=== PATIENT | male | born 1960 | race Caucasian/White ===

== ENCOUNTER 2017-04-22 05:22 | Emergency (ER) | payer BC ==
[2017-04-22] MEDS ORDERED: MORPHINE SULFATE 10 MG/ML SYRINGE IV STA (05:34)
[2017-04-22] MEDS ORDERED: KETOROLAC 30 MG/ML 1 ML VIAL IVP STA ×2 (05:34→07:08)
[2017-04-22] MEDS ORDERED: ONDANSETRON 4 MG/2 ML VIAL IVP STA (05:34)
[2017-04-22] MEDS ORDERED: SODIUM CHLORIDE 0.9% 1,000 ML IV STA (05:34)
--- NOTE | 2017-04-22 05:37 | ED ---
General Adult HPI - General Source: patient, RN notes reviewed Mode of arrival: ambulatory Limitations: no limitations <Jarrell Temple - Last Filed: 04/22/17 07:22> <Sean Wright - Last Filed: 04/22/17 10:19> - General Chief complaint: Abdominal Pain Stated complaint: abd pain Time Seen by Provider: 04/22/17 05:25 - History of Present Illness Initial comments: 56-year-old male presents with chief complaint of groin pain and flank pain. Pain is constant dull pain. Patient does have history of kidney stones. Last stone was approximately 5 years ago. Symptoms began abruptly at approximately 2 AM. Patient took Motrin at home with minimal relief. Patient states that he has had some intermittent nausea over the past 24 hours. No significant vomiting. No diarrhea. Patient denies dysuria. Denies fever or chills. Past medical history of hypertension, and hypercholesterolemia. (Jarrell Temple) - Related Data Home Medications Medication Instructions Recorded Confirmed Fluvastatin Sodium 40 mg PO HS 04/22/17 04/22/17 Ibuprofen 600 mg PO Q6HR PRN 04/22/17 04/22/17 Losartan [Cozaar] 50 mg PO HS 04/22/17 04/22/17 Multivitamins, Thera [Multivitamin 1 tab PO HS 04/22/17 04/22/17 (formulary)] Previous Rx's Medication Instructions Recorded Hydrocodone/Acetaminophen [Hamer 2 each PO Q6HR PRN #20 tab 04/22/17 5-325] Tamsulosin [Flomax] 0.4 mg PO DAILY #14 cap 04/22/17 Allergies Allergy/AdvReac Type Severity Reaction Status Date / Time No Known Allergies Allergy Verified 04/22/17 08:32 Review of Systems ROS Other: All systems not noted in ROS Statement are negative. <Jarrell Temple - Last Filed: 04/22/17 07:22> ROS Other: All systems not noted in ROS Statement are negative. <Sean Wright - Last Filed: 04/22/17 10:19> ROS Statement: Those systems with pertinent positive or pertinent negative responses have been documented in the HPI. Past Medical History Past Medical History: Hyperlipidemia, Hypertension Additional Past Medical History / Comment(s): Kindey stones History of Any Multi-Drug Resistant Organisms: None Reported Additional Past Surgical History / Comment(s): Cyst removed off of testicle. Past Psychological History: No Psychological Hx Reported Smoking Status: Never smoker Past Alcohol Use History: None Reported Past Drug Use History: None Reported <Jarrell Temple - Last Filed: 04/22/17 07:22> General Exam Limitations: no limitations General appearance: alert, in distress Head exam: Present: atraumatic, normocephalic Eye exam: Present: normal appearance, PERRL ENT exam: Present: normal exam Neck exam: Present: normal inspection. Absent: tenderness, meningismus Respiratory exam: Present: normal lung sounds bilaterally. Absent: respiratory distress Cardiovascular Exam: Present: regular rate, normal rhythm GI/Abdominal exam: Present: soft. Absent: distended, tenderness, guarding, rebound exam: Present: normal inspection. Absent: testicular tenderness, scrotal swelling Extremities exam: Present: normal inspection, normal capillary refill. Absent: pedal edema Back exam: Present: normal inspection, full ROM. Absent: tenderness, CVA tenderness (R), CVA tenderness (L) Neurological exam: Present: alert, oriented X3, CN II-XII intact. Absent: motor sensory deficit Psychiatric exam: Present: normal affect, normal mood Skin exam: Present: warm, dry, intact. Absent: cyanosis, diaphoretic <Jarrell Temple - Last Filed: 04/22/17 07:22> Course <Jarrell Temple - Last Filed: 04/22/17 07:22> <Sean Wright - Last Filed: 04/22/17 10:19> Vital Signs 04/22/17 04/22/17 04/22/17 05:25 06:53 09:41 Temperature 98.0 F 97.9 F Pulse Rate 51 L 64 61 Respiratory 18 19 16 Rate Blood Pressure 150/80 125/76 120/70 O2 Sat by Pulse 98 96 98 Oximetry - Reevaluation(s) Reevaluation #1: 04/22/17 07:23 On reevaluation, patient is in severe pain, he is given additional IV pain medication. (Jarrell Temple) Reevaluation #2: 04/22/17 07:23 Patient's care is signed out to Dr. Wright, pending urinalysis, and reevaluation of pain. (Jarrell Temple) Medical Decision Making - Lab Data Result diagrams: 04/22/17 05:47 04/22/17 05:47 <Jarrell Temple - Last Filed: 04/22/17 07:22> - Lab Data Result diagrams: 04/22/17 05:47 04/22/17 05:47 - Radiology Data Radiology results: report reviewed (Computed tomography scan of the abdomen pelvis shows a 5 mm calculi left proximal ureter.) <Sean Wright - Last Filed: 04/22/17 10:19> - Medical Decision Making Patient reevaluated by myself, Dr. Wright. Patient resting comfortably in bed. Patient and family updated on results and need for follow-up. (Sean Wright) - Lab Data Lab Results 04/22/17 04/22/17 04/22/17 Range/Units 05:47 05:47 05:47 WBC 13.6 H (3.8-10.6) k/uL RBC 5.25 (4.30-5.90) m/uL Hgb 15.3 (13.0-17.5) gm/dL Hct 47.2 (39.0-53.0) % MCV 89.9 (80.0-100.0) fL MCH 29.2 (25.0-35.0) pg MCHC 32.5 (31.0-37.0) g/dL RDW 14.4 (11.5-15.5) % Plt Count 262 (150-450) k/uL Neutrophils % 74 % Lymphocytes % 18 % Monocytes % 6 % Eosinophils % 1 % Basophils % 0 % Neutrophils # 10.1 H (1.3-7.7) k/uL Lymphocytes # 2.4 (1.0-4.8) k/uL Monocytes # 0.8 (0-1.0) k/uL Eosinophils # 0.1 (0-0.7) k/uL Basophils # 0.1 (0-0.2) k/uL Sodium 139 (137-145) mmol/L Potassium 4.0 (3.5-5.1) mmol/L Chloride 105 (98-107) mmol/L Carbon Dioxide 26 (22-30) mmol/L Anion Gap 8 mmol/L BUN 18 (9-20) mg/dL Creatinine 1.00 (0.66-1.25) mg/dL Est GFR (MDRD) Af Amer >60 (>60 ml/min/1.73 sqM) Est GFR (MDRD) Non-Af >60 (>60 ml/min/1.73 sqM) Glucose 158 H (74-99) mg/dL Plasma Lactic Acid Darshan 1.7 (0.7-2.0) mmol/L Calcium 9.3 (8.4-10.2) mg/dL Total Bilirubin 0.7 (0.2-1.3) mg/dL AST 22 (17-59) U/L ALT 35 (21-72) U/L Alkaline Phosphatase 68 (38-126) U/L Total Protein 6.6 (6.3-8.2) g/dL Albumin 4.1 (3.5-5.0) g/dL Amylase <30 L (30-110) U/L Lipase 63 (23-300) U/L Urine Color Urine Appearance (Clear) Urine pH (5.0-8.0) Ur Specific Lyle (1.001-1.035) Urine Protein (Negative) Urine Glucose (UA) (Negative) Urine Ketones (Negative) Urine Blood (Negative) Urine Nitrite (Negative) Urine Bilirubin (Negative) Urine Urobilinogen (<2.0) mg/dL Ur Leukocyte Esterase (Negative) Urine RBC (0-5) /hpf Urine WBC (0-5) /hpf Urine Mucus (None) /hpf 04/22/17 Range/Units 09:39 WBC (3.8-10.6) k/uL RBC (4.30-5.90) m/uL Hgb (13.0-17.5) gm/dL Hct (39.0-53.0) % MCV (80.0-100.0) fL MCH (25.0-35.0) pg MCHC (31.0-37.0) g/dL RDW (11.5-15.5) % Plt Count (150-450) k/uL Neutrophils % % Lymphocytes % % Monocytes % % Eosinophils % % Basophils % % Neutrophils # (1.3-7.7) k/uL Lymphocytes # (1.0-4.8) k/uL Monocytes # (0-1.0) k/uL Eosinophils # (0-0.7) k/uL Basophils # (0-0.2) k/uL Sodium (137-145) mmol/L Potassium (3.5-5.1) mmol/L Chloride (98-107) mmol/L Carbon Dioxide (22-30) mmol/L Anion Gap mmol/L BUN (9-20) mg/dL Creatinine (0.66-1.25) mg/dL Est GFR (MDRD) Af Amer (>60 ml/min/1.73 sqM) Est GFR (MDRD) Non-Af (>60 ml/min/1.73 sqM) Glucose (74-99) mg/dL Plasma Lactic Acid Darshan (0.7-2.0) mmol/L Calcium (8.4-10.2) mg/dL Total Bilirubin (0.2-1.3) mg/dL AST (17-59) U/L ALT (21-72) U/L Alkaline Phosphatase (38-126) U/L Total Protein (6.3-8.2) g/dL Albumin (3.5-5.0) g/dL Amylase (30-110) U/L Lipase (23-300) U/L Urine Color Yellow Urine Appearance Clear (Clear) Urine pH 5.5 (5.0-8.0) Ur Specific Lyle 1.023 (1.001-1.035) Urine Protein Trace H (Negative) Urine Glucose (UA) Trace H (Negative) Urine Ketones Negative (Negative) Urine Blood Large H (Negative) Urine Nitrite Negative (Negative) Urine Bilirubin Negative (Negative) Urine Urobilinogen <2.0 (<2.0) mg/dL Ur Leukocyte Esterase Negative (Negative) Urine RBC 71 H (0-5) /hpf Urine WBC 3 (0-5) /hpf Urine Mucus Rare H (None) /hpf Disposition <Jarrell Temple - Last Filed: 04/22/17 07:22> Time of Disposition: 10:19 <Sean Wright - Last Filed: 04/22/17 10:19> Clinical Impression: Ureterolithiasis Disposition: HOME SELF-CARE Condition: Stable Instructions: Kidney Stones (ED) Additional Instructions: Please follow-up with primary care physician in the next day or 2 for recheck. Please also follow-up with urology. Return for uncontrolled pain, fevers, worsening symptoms or other concerns. Prescriptions: Hydrocodone/Acetaminophen [Hamer 5-325] 2 each PO Q6HR PRN #20 tab PRN Reason: Pain Tamsulosin [Flomax] 0.4 mg PO DAILY #14 cap Referrals: Lobo Lazaro MD [Primary Care Provider] - 1-2 days Romeo Henderson MD [STAFF PHYSICIAN] - 1-2 days
[2017-04-22 06:08] LABS: Basophils # (A) 0.1 k/uL (0-0.2); Basophils % (A) 0 %; CH 29.4; CHCM 32.9; Eosinophils # (A) 0.1 k/uL (0-0.7); Eosinophils % (A) 1 %; HCT 47.2 % (39.0-53.0); HDW 2.37; HGB 15.3 gm/dL (13.0-17.5); Luc # (Auto) 0.16; Luc % (Auto) 1; Lymphocytes # (A) 2.4 k/uL (1.0-4.8); Lymphocytes % (A) 18 %; MCH 29.2 pg (25.0-35.0); MCHC 32.5 g/dL (31.0-37.0); MCV 89.9 fL (80.0-100.0); Mean Platelet Volume 7.6; Monocytes # (A) 0.8 k/uL (0-1.0); Monocytes % (A) 6 %; Neutrophils # (A) 10.1 k/uL (1.3-7.7); Neutrophils % (A) 74 %; RBC 5.25 m/uL (4.30-5.90); RDW 14.4 % (11.5-15.5); WBC 13.6 k/uL (3.8-10.6); WBC (Perox) 13.92
[2017-04-22 06:13] LABS: ALT 35 U/L (21-72); AST 22 U/L (17-59); Alkaline Phosphatase 68 U/L (38-126); Amylase <30 U/L (30-110); Anion Gap 8 mmol/L; Blood Urea Nitrogen 18 mg/dL (9-20); Calcium 9.3 mg/dL (8.4-10.2); Carbon Dioxide 26 mmol/L (22-30); Chloride 105 mmol/L (98-107); Glucose 158 mg/dL (74-99); Non-African American GFR(MDRD) >60 (>60 ml/min/1.73 sqM); Sodium 139 mmol/L (137-145); Total Bilirubin 0.7 mg/dL (0.2-1.3); Total Protein 6.6 g/dL (6.3-8.2)
[2017-04-22] MEDS ORDERED: MORPHINE SULFATE 10 MG/ML SYRINGE IVP STA (06:41)
--- NOTE | 2017-04-22 06:49 | CT ---
EXAM: CT Abdomen and Pelvis Without Intravenous Contrast. CLINICAL HISTORY: Reason: Left lower quadrant abdominal pain and nausea TECHNIQUE: Axial computed tomography images of the abdomen and pelvis without intravenous contrast. CTDI is 14.94 mGy and DLP is a 27 mGy-cm. This CT exam was performed using one or more of the following dose reduction techniques: automated exposure control, adjustment of the mA and/or kV according to patient size, and/or use of iterative reconstruction technique. COMPARISON: No relevant prior studies available. FINDINGS: Lower thorax: No acute findings. ABDOMEN: Liver: Diffuse hypoattenuation of the hepatic parenchyma is most consistent with fat infiltration. Gallbladder and bile ducts: Unremarkable. No calcified stones. No ductal dilation. Pancreas: Unremarkable. No ductal dilation. Spleen: Unremarkable. No splenomegaly. Adrenals: Unremarkable. No mass. Kidneys and ureters: There is an obstructing 5 mm calculus at the left ureteropelvic junction or proximal left ureter, with mild to moderate left-sided hydronephrosis and perinephric stranding. Findings consistent with left-sided obstructive uropathy. PELVIS: Bladder: Unremarkable. No stones. Reproductive: Unremarkable as visualized. Appendix: No findings to suggest acute appendicitis. ABDOMEN + PELVIS: Stomach and bowel: No bowel obstruction or wall thickening. Colonic diverticulosis, without evidence of acute diverticulitis. Peritoneum: Unremarkable. No significant fluid collection. No free air. Lymph nodes: Unremarkable. No enlarged lymph nodes. Vasculature: Unremarkable. No aortic aneurysm. Bones: No acute fracture. IMPRESSION: Left-sided obstructive uropathy due to a 5 mm calculus at the left UPJ or proximal left ureter. Hepatic steatosis. Diverticulosis without evidence of acute diverticulitis.
[2017-04-22] MEDS ORDERED: SODIUM CHLORIDE 0.9% 1,000 ML IV ONE (06:59)
[2017-04-22] MEDS ORDERED: HYDROmorphone 1 MG/ML 1 ML SYRINGE IVP STA (07:08)
[2017-04-22 09:42] VITALS: RESP 16
[2017-04-22 10:00] LABS: Appearance,Urine Clear (Clear); Bilirubin,Urine Negative (Negative); Glucose,Urine (UA) Trace (Negative); Ketones,Urine Negative (Negative); Leukocyte Esterase,Urine Negative (Negative); Mucus,Urine Rare /hpf; Nitrite,Urine Negative (Negative); PH, Urine 5.5 (5.0-8.0); Particle Count 2209; Protein,Urine Trace (Negative); RBC,Urine 71 /hpf (0-5); Specific Gravity,Urine 1.023 (1.001-1.035); UA Billing (MACRO vs. MICRO) MICRO; Urobilinogen,Urine <2.0 mg/dL (<2.0); WBC,Urine 3 /hpf (0-5)
[2017-04-22 10:33] VITALS: BP 119/67; PULSE 65; TEMP 97.8
== END 2017-04-22 10:32 | disposition home or self-care (01) ==
LOC: EC 05:22
DX: N20.1 Calculus of ureter (principal); I10 Essential (primary) hypertension; E78.5 Hyperlipidemia, unspecified; Z79.899 Other long term (current) drug therapy
CPT/HCPCS: 51798; 36415; 80053; 82150; 83605; 83690; 85025; 81001; 87086; 74176; 99284; 96374; 96375 ×3; 96376 ×2; 96361 ×3; J2270; J2405; J1885; J1170

== ENCOUNTER → 2017-06-26 | Outpatient (CLI) | payer BC ==
--- NOTE | 2017-06-26 16:10 | XR ---
Abdomen HISTORY: Kidney stones Frontal view of the abdomen on 2 images correlated to prior abdomen 01/08/2012, CT 04/22/2017 Vascular calcification is again noted on the left as on prior CT. Nonobstructive calcification suspec stephanie at the lower pole left kidney measuring approximately 4 to 5 mm. Proximal ureteral calculus seen on prior CT is not seen definitively. The prostate calcification present. Phlebolith likely present i n the right hemipelvis. No evident bowel obstruction or pneumoperitoneum. IMPRESSION: Parenchymal and vascular calcification suspected in the left. Ureteral calculus is not id entified with certainty.
== END | disposition home or self-care (01) ==
LOC: RADXRMAIN 15:06
PROVIDERS: ATTEND Urology
DX: N20.1 Calculus of ureter (principal); N20.0 Calculus of kidney
CPT/HCPCS: 74018

== ENCOUNTER → 2017-09-23 | Outpatient (CLI) | payer BC ==
--- NOTE | 2017-09-23 09:00 | US ---
EXAMINATION TYPE: US prostate transrectal DATE OF EXAM: 09/23/2017 COMPARISON: CT abdomen and pelvis July 11, 2017 CLINICAL HISTORY: R97.20 elevated PSA. h/o infection that is being treated with antibiotic, PSA was e levated to 5.8 and has since dropped to 1.1 This examination was performed using the transrectal probe. EXAM MEASUREMENTS: Gland Size: 4.7 x 4.9 x 3.2cm Volume: 37.9ml Predicted PSA: 4.5 Actual PSA (if available):1.1 slightly heterogenous PZ with calcified CZ, no focal increased vascularity or lesions seen Seminal vesicles are not well seen towards beginning of study but appear unremarkable on recent CT. P rostate gland is slightly enlarged in size and heterogeneous in appearance with central zone calcific ations. No suspicious hypoechoic nodule is present. IMPRESSION: Slightly enlarged prostate gland without discrete hypoechoic nodule. Predicted PSA = volume x 0.12 ng/ml Calculated Volume = 0.5236 x L x W x H
== END | disposition home or self-care (01) ==
LOC: RADUSMAIN 07:50
PROVIDERS: ATTEND Internal Medicine
DX: N40.0 Benign prostatic hyperplasia without lower urinary tract symptoms (principal)
CPT/HCPCS: 76872

== ENCOUNTER → 2017-10-22 | Outpatient (CLI) | payer BC ==
--- NOTE | 2017-10-22 19:14 | CT ---
EXAMINATION TYPE: CT abdomen pelvis w con DATE OF EXAM: 10/22/2017 COMPARISON: CT abdomen and pelvis July 11, 2017 HISTORY: Pelvic and flank pain, worse on left side x [address] DLP: 1413 mGycm, Automated Exposure Control for Dose Reduction was Utilized. CONTRAST: CT scan of the abdomen and pelvis is performed with oral and with IV Contrast, patient injected with 100 mL of Isovue M300. FINDINGS: LUNG BASES: No significant abnormality is appreciated. LIVER/GB: No significant abnormality is appreciated. PANCREAS: No significant abnormality is seen. SPLEEN: No significant abnormality is seen. ADRENALS: No significant abnormality is seen. KIDNEYS: Focal cortical defect laterally left kidney mid pole level axial image 32 is redemonstrated. There is symmetric cortical medullary uptake and excretion from both kidneys without evidence of hyd ronephrosis bilaterally. There is stable 5 mm calculus lower pole level left kidney coronal image 54. BOWEL: Oral contrast does not reach colonic level. There is no suspicious small or large bowel dilata tion. Appendix is felt within normal limits descending from base of cecum. Occasional diverticula are seen in the proximal sigmoid colon. There is no CT evidence for acute diverticulitis. PROSTATE/SEMINAL VESICLES: Central zone calcifications are seen in mildly enlarged prostate gland bul ging on bladder base, underlying BPH is suspected, findings correlate with prostate ultrasound September 23, 2017. LYMPH NODES: No greater than 1cm abdominal or pelvic lymph nodes are appreciated. OSSEOUS STRUCTURES: There is transitional-type vertebra at lumbosacral junction. OTHER: No significant additional abnormality is seen. IMPRESSION: Interval successful passage or treatment of distal left ureter calculus with resolution o f hydronephrosis. No new suspicious finding is seen to account for patient's symptoms.
== END | disposition home or self-care (01) ==
LOC: RADCTMAIN 16:35
PROVIDERS: ATTEND Internal Medicine
DX: R10.9 Unspecified abdominal pain (principal)
CPT/HCPCS: 74177; Q9967

== ENCOUNTER → 2019-03-14 | Outpatient (CLI) | payer BC ==
--- NOTE | 2019-03-15 14:59 | CT ---
EXAMINATION TYPE: CT abdomen pelvis w con DATE OF EXAM: 03/14/2019 COMPARISON: 10/22/2017 HISTORY: Abdominal pain CT DLP: 863.2 mGycm Automated exposure control for dose reduction was used. TECHNIQUE: Helical acquisition of images was performed from the lung bases through the pelvis. CONTRAST: Performed with Oral Contrast and with IV Contrast, patient injected with 100 mL of Isovue 300. FINDINGS: Lung bases are clear of infiltrate. There is no pleural effusion. Heart size is normal. There is no p ericardial effusion. Liver spleen stomach pancreas gallbladder appear normal. Bile ducts are not dilated. There is no adre nal mass. The kidneys show satisfactory contrast opacification. There is no hydronephrosis. Ureters a re not dilated. There is focal cortical thickening anterior and lateral left kidney that could relate to old pyelonephritis. There is probably a calyceal diverticulum anterior left kidney. There is no r etroperitoneal adenopathy. Bladder distends smoothly. There is no inguinal hernia. There is no sign of pelvic mass. There is prostatic calcification. There is no mesenteric edema. There is no ascites or free air. Appendix appears normal. There is no sign o f a bowel obstruction. Lumbar spine is intact. Bony pelvis appears intact. There is some narrowing of L5-S1 disc space with vacuum disc. IMPRESSION: MILD DEFORMITY OF THE LEFT KIDNEY CONSISTENT WITH SCARRING. NO CHANGE. NO ACUTE ABNORMALITY OF THE AB DOMEN PELVIS.
== END ==
LOC: RADCTMAIN 11:35
PROVIDERS: ATTEND Internal Medicine
DX: N28.89 Other specified disorders of kidney and ureter (principal)
CPT/HCPCS: 74177; Q9967 ×2

== ENCOUNTER → 2024-01-13 | Outpatient (CLI) | payer BC ==
--- NOTE | 2024-02-08 07:54 | CT ---
EXAMINATION TYPE: CT pelvis wo con DATE OF EXAM: 01/13/2024 COMPARISON: No comparison available on downtime PACS. HISTORY: Sacrococcygeal disorder CT DLP: 367 mGycm Automated exposure control for dose reduction was used. Contrast: None Technique: Axial images 3 mm thick sections. Reconstructed images coronal and sagittal plane. Bone an d soft tissue is reviewed. FINDINGS: Sacrum and coccyx appear intact. No suspicious erosions evident. Sacroiliac joints are normal. Intraperitoneal structures appear normal. The appendix is visualized and is normal. Loops of bowel ap pear unremarkable. Urinary bladder is unremarkable. Prostate is enlarged and contains calcification. Presacral space is normal. No perirectal adenopathy is evident. Vascular structures appear unremarkab le. No abnormal iliac chain adenopathy. IMPRESSION: 1. NO SUSPICIOUS SACROCOCCYGEAL ABNORMALITY
== END | disposition home or self-care (01) ==
LOC: RADCTMAIN 09:00
PROVIDERS: ATTEND Family Medicine
DX: M53.3 Sacrococcygeal disorders, not elsewhere classified (principal)
CPT/HCPCS: 72192

== ENCOUNTER → 2024-10-28 | Outpatient (CLI) | payer BC ==
--- NOTE | 2024-10-28 12:25 | CA ---
Transthoracic Echo Report Name: Rodrigo Varghese Age: 63 Gender: M : 1960 Exam Date: 10/28/2024 08:13 Exam Location: [facility] Ht (in): 66 Wt (lb): 180 Ordering Physician: Lc Carbone MD Attending/Referring Phys: Henry Burger PAC Material Clerk Elaine Rodríguez RDCS Procedure CPT: Indications: Z82.49 FAMILY HX OF ISCHEM HEART DIS AND OTH DIS O Cardiac Hx: Technical Quality: Good Contrast 1: Total Dose (mL): Contrast 2: Total Dose (mL): MEASUREMENTS (Male / Female) Normal Values 2D ECHO LV Diastolic Diameter PLAX 3.9 cm 4.2 - 5.9 / 3.9 - 5.3 cm LV Systolic Diameter PLAX 2.7 cm IVS Diastolic Thickness 1.2 cm 0.6 - 1.0 / 0.6 - 0.9 cm LVPW Diastolic Thickness 1.1 cm 0.6 - 1.0 / 0.6 - 0.9 cm LV Relative Wall Thickness 0.6 RV Internal Dim ED PLAX 2.5 cm LA Systolic Diameter LX 4.2 cm 3.0 - 4.0 / 2.7 - 3.8 cm LV Diastolic Volume MOD BP 75.1 cm??? 67 - 155 / 56 - 104 cm??? LV Systolic Volume MOD BP 29.5 cm??? 22 - 58 / 19 - 49 cm??? LV Ejection Fraction MOD BP 60.7 % >= 55 % LV Cardiac Index MOD BP 1387.3 cm???/min???m??? LV Diastolic Volume MOD 4C 83.8 cm??? LV Systolic Volume MOD 4C 32.6 cm??? LV Ejection Fraction MOD 4C 61.2 % LV Cardiac Index MOD 4C 1559.7 cm???/min???m??? LV Diastolic Length 4C 8.4 cm LV Systolic Length 4C 6.2 cm LV Diastolic Volume MOD 2C 57.9 cm??? LV Systolic Volume MOD 2C 26.2 cm??? LV Ejection Fraction MOD 2C 54.8 % LV Cardiac Index MOD 2C 965.2 cm???/min???m??? LV Diastolic Length 2C 7.2 cm LV Systolic Length 2C 6.4 cm LA Volume 77.9 cm??? 18 - 58 / 22 - 52 cm??? LA Volume Index 39.5 cm???/m??? 16 - 28 cm???/m??? M-MODE Aortic Root Diameter MM 3.1 cm LA Systolic Diameter MM 3.4 cm LA Ao Ratio MM 1.1 AV Cusp Separation MM 2.2 cm DOPPLER MV Area PHT 2.5 cm??? Mitral E Point Velocity 69.3 cm/s Mitral A Point Velocity 54.5 cm/s Mitral E to A Ratio 1.3 MV Deceleration Time 302.4 ms TR Peak Velocity 224.4 cm/s TR Peak Gradient 20.1 mmHg FINDINGS Left Ventricle Left ventricular ejection fraction is estimated at 60-65%. Mildly increased septal wall thickness. Normal left ventricular systolic function with no obvious regional wall motion abnormalities. Left ventricular cavity size normal. Right Ventricle Normal right ventricular size and function. Right ventricular systolic pressure within normal limits. Right Atrium Normal right atrial size. Left Atrium Moderately increased left atrial volume. Mitral Valve Structurally normal mitral valve. Trace to mild mitral regurgitation. No mitral stenosis. Aortic Valve Trileaflet aortic valve. No aortic valve stenosis or regurgitation. Tricuspid Valve Structurally normal tricuspid valve. Mild tricuspid regurgitation. No tricuspid stenosis. Pulmonic Valve Structurally normal pulmonic valve. No pulmonic stenosis. Trace pulmonic regurgitation. Pericardium No pericardial or pleural effusion. Aorta Normal size aortic root and proximal ascending aorta. CONCLUSIONS Mild LVH with preserved systolic function Normal RV size and function Moderate left atrial enlargement Thickened pericardium with trace posterior effusion Previewed by: Dr. Daniel Loepz MD (Electronically Signed) Final Date: 28 Oct 2024 12:24
--- NOTE | 2024-10-28 12:50 | CA ---
Exercise Stress Test Report Name: Rodrigo Varghese Exam Date: 10/28/2024 09:13 Exam Location: [facility] Ht (in): 66 Wt (lb): 180 BSA: 1.91 Ordering Phys: Lc Carbone MD Referring Phys: Henry Burger Technologist: AAYNA TRINIDAD Age: 63 Gender: M : 1960 Procedure CPT: Indications: Z82.49 FAMILY HX OF ISCHEM HEART DIS AND OTH DIS O ICD-10 Codes: Patient History: Medications: TAMSULOSIN,,,, LOSARTAN,,,, PRILOSEC,,, Meds past 24 hrs: Pretest Chest Pain: STRESS TEST Tiburcio Protocol Exercise Duration (min:sec): 06:[address] Depressions (mm): Angina Score: Rivera Score: Resting HR (bpm): 62 Peak HR (bpm): 148 Resting BP (mmHg): 124 / 88 Peak BP (mmHg): 215 / 89 MPHR: 156 Target HR: 133 % MPHR: 95 METS: 8.0 Total Dose: Peak Dose: Atropine: Double Product: 80879 BP Response: Stress Termination: TARGET HR REACHED/MAX EXERTION Stress Symptoms: NO SYMPTOMS Stress Summary: ECG ANALYSIS Resting ECG: Stress ECG: CONCLUSIONS Reason: Hypertension dyslipidemia family history of CAD Average exercise capacity on a Tiburcio protocol of 6-1/2 minutes Hypertensive response to exercise. Peak blood pressure 215/89 mmHg No ECG evidence for ischemia or arrhythmia Dr. Daniel Lopez MD (Electronically Signed) Final Date: 28 Oct 2024 12:49
== END | disposition home or self-care (01) ==
LOC: RADECHMAIN 08:06
PROVIDERS: ATTEND Family Medicine
DX: I07.1 Rheumatic tricuspid insufficiency (principal); E78.5 Hyperlipidemia, unspecified; I11.9 Hypertensive heart disease without heart failure; Z82.49 Family history of ischemic heart disease and other diseases of the circulatory system
CPT/HCPCS: 93017; 93306